=== PATIENT | female | born 1965 | race Caucasian/White ===

== ENCOUNTER 2024-07-23 14:54 | Outpatient (CLI) | payer OTHER ==
[2024-07-23 15:53] LABS: HEMATOCRIT 39.6 % (36.0-45.00); HEMOGLOBIN 13.3 g/dL (12.0-15.00); MEAN CORPUSCULAR HGB CONC 33.7 g/dl (32.0-36.0); PLATELET COUNT 258 K/uL (150-450); RED BLOOD COUNT 4.04 M/uL (4.00-6.00); RED CELL DISTRIBUTION WIDTH 12.9 % (11.5-14.5)
[2024-07-23 16:16] LABS: FIBRINOGEN 316 mg/dL (187.0-446.0); INR 0.98; PARTIAL THROMBOPLASTIN TIME 26.7 SECONDS (22.0-34.0); PROTHROMBIN TIME 10.7 SECONDS (9.0-11.5)
[2024-07-23 16:27] LABS: COL EPI 87 SECONDS (82-175)
== END 2024-07-23 15:05 | disposition home or self-care (01) ==
LOC: LAB 14:54
PROVIDERS: ATTEND Internal Medicine Hematology & Oncology
DX: B01.9 Varicella without complication (principal); D69.6 Thrombocytopenia, unspecified; D68.8 Other specified coagulation defects; D65 Disseminated intravascular coagulation [defibrination syndrome]